=== PATIENT | male | born 1990 | race American Indian/Alaskan Native ===

== ENCOUNTER 2020-03-05 11:21 | Emergency (ER) | payer SELFPAY ==
[2020-03-05 11:34] VITALS: BP 147/103
--- NOTE | 2020-03-05 12:28 | Emergency Department Report ---
Chief Complaint: Upper Respiratory Infection Stated Complaint: CHEST PAIN - HPI History of Present Illness: 29-year-old -Citizen Of The [place] male presents to the emergency room for 3-day history of productive cough chest pain with cough dizziness low-grade fever on Tuesday sore throat. Patient states he is able to eat and drink. From taking DayQuil. - Exam Vital Signs: Vital Signs 03/05/20 11:31 Temperature 98.2 F Pulse Rate 74 Respiratory 18 Rate Blood Pressure 147/103 O2 Sat by Pulse 99 Oximetry Physical Exam: Gen: alert oriented NAD Cardic: regular rate and rhythm no murmurs appreciated Resp: Clear to auscultation bilateral no wheezing no rales or rhonchi. Abdomen: Soft nontender nondistended normal bowel sounds. Mini neuro: Normal finger to nose exam, [id number] normal, Romberg neg, st rengh 4/5 all extrimities, Alert and oriented time 3 Crainal nerve II-IIX intact MSE screening note: Focused history and physical exam performed. Due to findings the following was ordered: 29-year-old -Citizen Of [place] male presents to the emergency room for 3-day history of productive cough chest pain with cough dizziness low-grade fever on Tuesday sore throat. Patient states he is able to eat and drink. From taking DayQuil. ED Disposition for MSE Disposition: Z- MED SCREENING EXAM-LEFT Is pt being admited?: No Does the pt Need Aspirin: No Condition: Stable Additional Instructions: Your symptoms appear most consistent with a nonspecific viral syndrome. However, given this current pandemic, COVID-19 is in the differential of possibilities. Despite your previous negative COVID-19 test, I do recommend repeat outpatient Covid 19 testing. In the meantime, isolate/quarantine yourself and stay away from anyone who is elderly, immunocompromised or chronically ill. You can use ibuprofen every 6-8 hours and Tylenol every 4-8 hours, using the dosing on the back of the bottle, as needed for any fever or body aches. Return to the emergency department with any worsening of your symptoms, development of chest pain or shortness of breath, or with any acute distress. Forms: Work/School Release Form(ED)
== END 2020-03-05 12:53 | disposition left against medical advice (07) ==
LOC: ED 11:21
DX: R05 Cough (principal); R07.89 Other chest pain; Z53.21 Procedure and treatment not carried out due to patient leaving prior to being seen by health care provider
CPT/HCPCS: 93005